=== PATIENT | male | born 1990 | race Caucasian/White ===

== ENCOUNTER 2017-04-10 23:55 | Emergency (ER) | payer SELFPAY ==
[~2017-04-10] VITALS: Ht 180.3 cm; Wt 108.9 kg
[2017-04-10 23:55] VITALS: BP_SYST 110
[2017-04-11] MEDS ORDERED: LIDOCAINE 1%, 20 ML MDV 20 ML ONE (00:07)
[2017-04-11] MEDS ORDERED: DIPH-TET-PERTUS Vaccine 0.5 ML VIAL (ADACEL) IM ONE (00:15)
[2017-04-11] MEDS ORDERED: BACITRACIN 1 GM OINT TP ONE (00:15)
[2017-04-11] MEDS ORDERED: LIDOCAINE 1% 10 MG/ML, 20 ML MDV IJ ONE (00:15)
[2017-04-11 01:18] VITALS: BP_SYST 112
== END 2017-04-11 01:18 | disposition home or self-care (01) ==
LOC: SED 23:55
DX: S61.412A Laceration without foreign body of left hand, initial encounter (principal); W25.XXXA Contact with sharp glass, initial encounter; Y93.89 Activity, other specified; Y92.89 Other specified places as the place of occurrence of the external cause; Y99.8 Other external cause status
CPT/HCPCS: 12001; 73130; 90471; 90715; 99284; J2001